=== PATIENT | male | born 1960 | race Caucasian/White ===

== ENCOUNTER 2024-07-13 10:06 | Emergency (ER) | payer MEDICARE ==
[2024-07-13] MEDS: Ketorolac 30 MG/ML SDV IM ONE (10:42)
[2024-07-13] MEDS: Orphenadrine 60 MG/2 ML Inj IM ONE (10:42)
[2024-07-13] MEDS: Take Home: Cyclobenzaprine 10 MG Tab, 4 Tab Pack PO ONE (10:42)
== END 2024-07-13 10:59 | disposition home or self-care (01) ==
LOC: VM.ED 10:06
DX: M54.50 Low back pain, unspecified (principal); M79.662 Pain in left lower leg; I25.10 Atherosclerotic heart disease of native coronary artery without angina pectoris; E78.00 Pure hypercholesterolemia, unspecified; I10 Essential (primary) hypertension; Z87.39 Personal history of other diseases of the musculoskeletal system and connective tissue; Z95.1 Presence of aortocoronary bypass graft; Z79.82 Long term (current) use of aspirin; Z79.899 Other long term (current) drug therapy
CPT/HCPCS: 96372; 99283; A9270; J1885; J2360

== ENCOUNTER 2024-07-14 09:03 | Emergency (ER) | payer MEDICARE ==
[2024-07-14] MEDS: Ketorolac 30 MG/ML SDV IM ONE (09:32)
[2024-07-14] MEDS: HYDROmorphone 1 MG/ML Syringe SUBCUT ONE (09:32)
[2024-07-14] MEDS: Orphenadrine 60 MG/2 ML Inj IM ONE (09:32)
[2024-07-14] MEDS: Take Home: predniSONE 20 MG, 2 Tab Pack PO ONE (09:33)
[2024-07-14] MEDS: Take Home: Acetaminophen/HYDROcodone 325-5 MG, 5 Tab Pack PO ONE (09:33)
== END 2024-07-14 10:17 | disposition home or self-care (01) ==
LOC: VM.ED 09:03
DX: M54.16 Radiculopathy, lumbar region (principal); E78.00 Pure hypercholesterolemia, unspecified; I10 Essential (primary) hypertension; Z79.82 Long term (current) use of aspirin; Z79.899 Other long term (current) drug therapy
CPT/HCPCS: 96372; 99283; A9270; J1170; J1885; J2360; J7512